=== PATIENT | female | born 1990 | race Caucasian/White ===

== ENCOUNTER → 2019-03-13 08:54 | Outpatient (CLI) | payer OTHER, SELFPAY ==
[2019-03-13 10:46] LABS: Internal QC Validated? YES +Cl - CLEAR BKGD; Pregnancy, Urine Negative Negative
== END ==
PROVIDERS: Referring Provider Dermatology Pediatric Dermatology; Visit Provider Dermatology Pediatric Dermatology
DX: L70.0 Acne vulgaris (principal); Z79.899 Other long term (current) drug therapy
CPT/HCPCS: 81025

== ENCOUNTER → 2019-04-12 08:22 | Outpatient (CLI) | payer OTHER, SELFPAY ==
[2019-04-12 09:57] LABS: Internal QC Validated? YES +Cl - CLEAR BKGD; Pregnancy, Urine Negative Negative
== END ==
PROVIDERS: Referring Provider Physician Assistant; Visit Provider Physician Assistant
DX: L70.5 Acne excoriee (principal)
CPT/HCPCS: 81025

== ENCOUNTER → 2019-05-16 09:12 | Outpatient (CLI) | payer OTHER, SELFPAY ==
[2019-05-16 10:12] LABS: Internal QC Validated? YES +Cl - CLEAR BKGD; Pregnancy, Urine Negative Negative
== END ==
PROVIDERS: Referring Provider Physician Assistant Medical; Visit Provider Physician Assistant Medical
DX: L70.5 Acne excoriee (principal); Z79.899 Other long term (current) drug therapy
CPT/HCPCS: 81025

== ENCOUNTER → 2019-06-15 09:11 | Outpatient (CLI) | payer OTHER, SELFPAY ==
[2019-06-15 10:02] LABS: Internal QC Validated? YES +Cl - CLEAR BKGD; Pregnancy, Urine Negative Negative
[2019-06-15 10:25] LABS: AST(SGOT) 18 U/L (15-37); Alanine Aminotransfer ALT/SGPT 20 U/L (13-56); Albumin, Serum 3.3 g/dL (3.2-5.0); Alkaline Phosphatase 60 U/L (45-117); Bilirubin, Direct 0.09 mg/dL (0.00-0.30); Cholesterol 177 mg/dL (200); Globulin 3.7 g/dL (2.2-4.2); High Density Lipoprotein 33 mg/dL; Triglycerides 287 mg/dL; Very Low Density Lipoprotein 57 mg/dL (5-40)
== END ==
PROVIDERS: Referring Provider Physician Assistant Medical; Visit Provider Physician Assistant Medical
DX: L70.5 Acne excoriee (principal); Z79.899 Other long term (current) drug therapy
CPT/HCPCS: 36415; 80061; 80076; 81025

== ENCOUNTER → 2019-07-20 09:06 | Outpatient (CLI) | payer OTHER, SELFPAY ==
[2019-07-20 10:43] LABS: Internal QC Validated? YES +Cl - CLEAR BKGD; Pregnancy, Urine Negative Negative
[2019-07-20 11:03] LABS: Cholesterol 200 mg/dL (200); High Density Lipoprotein 27 mg/dL; Triglycerides 433 mg/dL
== END ==
PROVIDERS: Referring Provider Physician Assistant Medical; Visit Provider Physician Assistant Medical
DX: L70.5 Acne excoriee (principal); Z79.899 Other long term (current) drug therapy
CPT/HCPCS: 36415; 80061; 81025

== ENCOUNTER → 2019-08-24 09:46 | Outpatient (CLI) | payer OTHER, SELFPAY ==
[2019-08-24 12:29] LABS: Internal QC Validated? YES +Cl - CLEAR BKGD; Pregnancy, Urine Negative Negative
== END ==
PROVIDERS: Referring Provider Physician Assistant Medical; Visit Provider Physician Assistant Medical
DX: L70.5 Acne excoriee (principal); Z79.899 Other long term (current) drug therapy
CPT/HCPCS: 81025